=== PATIENT | male | born 1960 | race Caucasian/White ===

== ENCOUNTER 2016-11-07 18:11 | Emergency (ER) | payer MEDICARE, MEDICAID ==
[~2016-11-07] VITALS: Ht 175.3 cm; Wt 72.0 kg
[2016-11-07] MEDS ORDERED: PANT40TA25 PO (18:18)
[2016-11-07] MEDS ORDERED: VALP250 PO (18:18)
[2016-11-07] MEDS ORDERED: LURA80 PO (18:18)
[2016-11-07] MEDS ORDERED: OXYB5 PO (18:18)
[2016-11-07] MEDS ORDERED: MELA3TAB66 PO (18:18)
[2016-11-07] MEDS ORDERED: CLOP75 PO (18:18)
[2016-11-07] MEDS ORDERED: LITH300C3 PO (18:18)
[2016-11-07] MEDS ORDERED: ATOR20TA86 PO (18:18)
[2016-11-07] MEDS ORDERED: GABA-531 PO (18:18)
[2016-11-07] MEDS ORDERED: MELA5TAB3 PO (18:24)
[2016-11-07] MEDS ORDERED: BACITRACIN 0.9 GM PACKET OINTMENT TP ONE ×2 (18:45)
[2016-11-07] MEDS ORDERED: BACITRACIN 28.4 GM OINTMENT TP ONE (19:15)
[2016-11-07 19:33] VITALS: BP 127/74
== END 2016-11-07 20:03 | disposition home or self-care (01) ==
LOC: EMS 18:16
DX: T81.31XA Disruption of external operation (surgical) wound, not elsewhere classified, initial encounter (principal); F17.210 Nicotine dependence, cigarettes, uncomplicated; E78.00 Pure hypercholesterolemia, unspecified
CPT/HCPCS: 99283; 99406

== ENCOUNTER 2017-01-11 09:27 | Emergency (ER) | payer MEDICARE, MEDICAID ==
[~2017-01-11] VITALS: Ht 172.7 cm; Wt 68.1 kg
[~2017-01-11 09:27] MED LIST: ATOR20TA86 PO; CLOP75 PO; GABA-531 PO; LITH300C3 PO; LURA80 PO; MELA5TAB3 PO; OXYB5 PO; PANT40TA25 PO; VALP250 PO
[2017-01-11 09:50] VITALS: BP 137/91
[2017-01-11] MEDS ORDERED: FLUORESCEIN SODIUM 1 MG STRIP OU ONE (10:30)
== END 2017-01-11 11:28 | disposition home or self-care (01) ==
LOC: EMS 09:28
DX: S81.032A Puncture wound without foreign body, left knee, initial encounter (principal); I83.12 Varicose veins of left lower extremity with inflammation; I83.11 Varicose veins of right lower extremity with inflammation; F17.210 Nicotine dependence, cigarettes, uncomplicated; E78.00 Pure hypercholesterolemia, unspecified; X58.XXXA Exposure to other specified factors, initial encounter; Y93.89 Activity, other specified; Y92.89 Other specified places as the place of occurrence of the external cause; Y99.8 Other external cause status
CPT/HCPCS: 99283; 99406

== ENCOUNTER 2018-11-12 14:43 | Inpatient (IN) | payer MEDICARE, MEDICAID ==
[~2018-11-12] VITALS: Ht 172.7 cm; Wt 63.5 kg
[~2018-11-12 14:43] MED LIST changes: -CLOP75 PO; +CLOP75TA3 PO
[2018-11-12] MEDS ORDERED: DIPH12.55 PO (14:53)
[2018-11-12] MEDS ORDERED: HYD50 PO (14:53)
[2018-11-12] MEDS ORDERED: METO25 PO (14:53)
[2018-11-12] MEDS ORDERED: LEVO75 PO (14:53)
[2018-11-12] MEDS ORDERED: ICOS0.5C PO (14:53)
[2018-11-12] MEDS ORDERED: VITAD400 PO (14:53)
[2018-11-12] MEDS ORDERED: LISI-662 PO (14:53)
[2018-11-12] MEDS ORDERED: HYDROCORTISONE 1% 30 GM OINTMENT TP ONE (15:15)
[2018-11-12 15:38] LABS: BASOPHILS % (AUTO) 0.7 % (0.0-2.0); EOSINOPHILS % (AUTO) 1.1 % (1.0-6.0); HEMATOCRIT 44.5 % (41-53); HEMOGLOBIN 14.8 g/dL (13.5-17.5); LYMPHOCYTES # (AUTO) 2.8 K/uL (1.0-4.8); LYMPHOCYTES % (AUTO) 28.5 % (22.0-44.0); MEAN CORPUSCULAR HEMOGLOBIN 28.4 pg (26.0-34.0); MEAN CORPUSCULAR HGB CONC 33.2 G/dL (31.0-37.0); MEAN CORPUSCULAR VOLUME 86 fL (80-100); MONOCYTES # (AUTO) 0.7 K/uL (0.1-1.0); MONOCYTES % (AUTO) 7.5 % (2.0-9.0); NEUTROPHILS % (AUTO) 62.2 % (40.0-70.0); PLATELET COUNT (AUTO) 358 K/uL (150-450); RED BLOOD CELL COUNT(AUTO) 5.19 MIL/uL (4.50-5.90); RED CELL DISTRIBUTION WIDTH 16.5 % (11.5-14.5)
[2018-11-12 16:07] LABS: ALANINE AMINOTRANSFERASE 22 U/L (12-78); ALKALINE PHOSPHATASE 66 U/L (46-116); ANION GAP 11 mmol/L (8-16); ASPARTATE AMINOTRANSFERASE 21 U/L (15-37); BILIRUBIN,TOTAL 0.4 mg/dL (0.1-1.0); CALCIUM, TOTAL 9.4 mg/dL (8.8-10.5); CARBON DIOXIDE 26 mmol/L (22-29); CHLORIDE 100 mmol/L (98-107); GLUCOSE,RANDOM 101 mg/dL (70-110); POTASSIUM 4.9 mmol/L (3.5-5.1); SODIUM SERUM 137 mmol/L (136-145); THYROID STIMULATING HORMONE 5.16 uIU/mL (0.36-3.74); TOTAL PROTEIN, SERUM 8.4 g/dL (6.4-8.2)
[2018-11-12 16:19] LABS: ALBUMIN 3.7 g/dL (3.4-5.0); CREATININE 1.49 mg/dL (0.60-1.30); GLOMERULAR FILTR. RATE CALC 49 mL/min (>60)
[2018-11-12 16:21] LABS: UREA NITROGEN, BLOOD 18 mg/dL (7-18)
[2018-11-12 18:39] VITALS: BP 133/68
[2018-11-12 18:52] VITALS: BP 133/68
[2018-11-12] MEDS ORDERED: INFLUENZA VIRUS VACCINE QVS 2019-20 (3YR+)/PF 60 MCG/0.5 ML SYRINGE IM ONE (19:00)
[2018-11-12] MEDS ORDERED: ATORVASTATIN CALCIUM 20 MG TABLET PO SCH (21:00)
[2018-11-12] MEDS: ZOLPIDEM TARTRATE 10 MG TABLET PO PRN (21:16)
[2018-11-13] MEDS ORDERED: NICOTINE 14 MG/24 HOUR PATCH TD PRN
[2018-11-13 06:00] VITALS: BP 147/83
[2018-11-13 06:16] LABS: CHOL/HDL RATIO 6.1 (4.2-7.3)
[2018-11-13] MEDS ORDERED: LEVOTHYROXINE SODIUM 75 MCG TABLET PO SCH (07:00)
[2018-11-13 08:00] VITALS: BP 116/72
[2018-11-13] MEDS ORDERED: OXYBUTYNIN CHLORIDE 5 MG TABLET PO SCH (09:00)
[2018-11-13] MEDS ORDERED: METOPROLOL TARTRATE 25 MG TABLET PO SCH (09:00)
[2018-11-13] MEDS ORDERED: PANTOPRAZOLE SODIUM 40 MG DR TABLET PO SCH (09:00)
[2018-11-13] MEDS ORDERED: CLOPIDOGREL BISULFATE 75 MG TABLET PO SCH (09:00)
[2018-11-13] MEDS ORDERED: LISINOPRIL 20 MG TABLET PO SCH (09:00)
[2018-11-13] MEDS ORDERED: CHOLECALCIFEROL (VIT D3) 400 UNITS TABLET PO SCH (09:00)
[2018-11-13] MEDS ORDERED: ICOSAPENT ETHYL 1 GM PO SCH (09:00)
[2018-11-13] MEDS ORDERED: ICOS1CAP PO (10:59)
[2018-11-13] MEDS ORDERED: BENZTROPINE MESYLATE 1 MG TABLET PO ONE (14:15)
[2018-11-13] MEDS ORDERED: OLANZapine 5 MG TABLET PO ONE (14:15)
[2018-11-13] MEDS ORDERED: ALBUTEROL SULFATE HFA 90 MCG/PUFF 8 GM INHALER IH PRN ×2 (16:15)
[2018-11-13] MEDS ORDERED: PETROLATUM,WHITE 28 GM JELLY TP PRN ×2 (16:15)
[2018-11-13] MEDS ORDERED: DOCUSATE SODIUM 100 MG CAPSULE PO PRN ×2 (16:15)
[2018-11-13] MEDS ORDERED: ONDANSETRON HCL 4 MG TABLET PO PRN ×2 (16:15)
[2018-11-13] MEDS ORDERED: MAGNESIUM HYDROXIDE SUSPENSION 30 ML UDCUP PO PRN ×2 (16:15)
[2018-11-13] MEDS ORDERED: LOPERAMIDE HCL 2 MG CAPSULE PO PRN ×2 (16:15)
[2018-11-13] MEDS ORDERED: CloNIDine HCL 0.1 MG TABLET PO PRN ×2 (16:15)
[2018-11-13] MEDS ORDERED: GuaiFENesin/D-METHORPHAN [SUGAR-FREE] 200-20MG/10 ML SYRUP UDCUP PO PRN ×2 (16:15)
[2018-11-13] MEDS ORDERED: MAG HYDROX/AL HYDROX/SIMETH ES 30 ML SUSPENSION UDCUP PO PRN ×2 (16:15)
[2018-11-13] MEDS ORDERED: ACETAMINOPHEN 325 MG TABLET PO PRN ×2 (16:15)
[2018-11-13] MEDS ORDERED: IBUPROFEN 400 MG TABLET PO PRN ×2 (16:15)
[2018-11-13] MEDS: LORazepam 2 MG TABLET PO PRN (16:20)
[2018-11-13] MEDS: METOPROLOL TARTRATE 25 MG TABLET PO SCH (16:20)
[2018-11-13 17:39] VITALS: BP 152/92
[2018-11-13] MEDS: ATORVASTATIN CALCIUM 20 MG TABLET PO SCH (20:27)
[2018-11-13] MEDS: OLANZapine 10 MG TABLET PO SCH (20:27)
[2018-11-13] MEDS: ZOLPIDEM TARTRATE 10 MG TABLET PO PRN (20:27)
[2018-11-13] MEDS: BENZTROPINE MESYLATE 1 MG TABLET PO SCH (20:28)
[2018-11-14 02:05] VITALS: BP 126/69
[2018-11-14] MEDS: LORazepam 2 MG TABLET PO PRN ×3 (02:08→16:09)
[2018-11-14] MEDS: BACITRACIN 28.4 GM OINTMENT TP PRN (02:08)
[2018-11-14] MEDS: NICOTINE 14 MG/24 HOUR PATCH TD PRN (06:00)
[2018-11-14] MEDS: HALOPERIDOL 5 MG TABLET PO PRN ×2 (06:54→16:09)
[2018-11-14] MEDS: PANTOPRAZOLE SODIUM 40 MG DR TABLET PO SCH (08:47)
[2018-11-14] MEDS: CHOLECALCIFEROL (VIT D3) 400 UNITS TABLET PO SCH (08:47)
[2018-11-14] MEDS: OXYBUTYNIN CHLORIDE 5 MG TABLET PO SCH (08:47)
[2018-11-14] MEDS: METOPROLOL TARTRATE 25 MG TABLET PO SCH ×2 (08:47→16:09)
[2018-11-14] MEDS: CLOPIDOGREL BISULFATE 75 MG TABLET PO SCH (08:47)
[2018-11-14] MEDS: LISINOPRIL 20 MG TABLET PO SCH (08:47)
[2018-11-14] MEDS: LEVOTHYROXINE SODIUM 75 MCG TABLET PO SCH (08:48)
[2018-11-14] MEDS: MULTIVITAMINS WITH MINERALS, THERAPEUTIC TABLET PO SCH (08:48)
[2018-11-14 10:29] VITALS: BP 149/62
[2018-11-14 16:39] VITALS: BP 137/92
[2018-11-14] MEDS: OLANZapine 10 MG TABLET PO SCH (20:20)
[2018-11-14] MEDS: BENZTROPINE MESYLATE 1 MG TABLET PO SCH (20:21)
[2018-11-14] MEDS: ATORVASTATIN CALCIUM 20 MG TABLET PO SCH (20:21)
[2018-11-15] MEDS: LEVOTHYROXINE SODIUM 75 MCG TABLET PO SCH (07:07)
[2018-11-15] MEDS: LORazepam 2 MG TABLET PO PRN ×2 (08:06→16:53)
[2018-11-15] MEDS: HALOPERIDOL 5 MG TABLET PO PRN ×2 (08:07→12:33)
[2018-11-15] MEDS: OXYBUTYNIN CHLORIDE 5 MG TABLET PO SCH (08:07)
[2018-11-15] MEDS: PANTOPRAZOLE SODIUM 40 MG DR TABLET PO SCH (08:07)
[2018-11-15] MEDS: MULTIVITAMINS WITH MINERALS, THERAPEUTIC TABLET PO SCH (08:07)
[2018-11-15] MEDS: CLOPIDOGREL BISULFATE 75 MG TABLET PO SCH (08:07)
[2018-11-15] MEDS: LISINOPRIL 20 MG TABLET PO SCH (08:07)
[2018-11-15] MEDS: CHOLECALCIFEROL (VIT D3) 400 UNITS TABLET PO SCH (08:07)
[2018-11-15] MEDS: METOPROLOL TARTRATE 25 MG TABLET PO SCH ×2 (08:08→16:53)
[2018-11-15 09:46] VITALS: BP 130/61
[2018-11-15] MEDS: NICOTINE 14 MG/24 HOUR PATCH TD PRN (12:55)
[2018-11-15 16:00] VITALS: BP 104/55
[2018-11-15] MEDS: BACITRACIN 28.4 GM OINTMENT TP PRN (16:53)
[2018-11-15] MEDS: BENZTROPINE MESYLATE 1 MG TABLET PO SCH (20:44)
[2018-11-15] MEDS: ATORVASTATIN CALCIUM 20 MG TABLET PO SCH (20:44)
[2018-11-15] MEDS: OLANZapine 10 MG TABLET PO SCH (20:44)
[2018-11-16] MEDS: LEVOTHYROXINE SODIUM 75 MCG TABLET PO SCH (06:47)
[2018-11-16] MEDS: CLOPIDOGREL BISULFATE 75 MG TABLET PO SCH (08:34)
[2018-11-16] MEDS: PANTOPRAZOLE SODIUM 40 MG DR TABLET PO SCH (08:35)
[2018-11-16] MEDS: METOPROLOL TARTRATE 25 MG TABLET PO SCH ×2 (08:35→16:11)
[2018-11-16] MEDS: MULTIVITAMINS WITH MINERALS, THERAPEUTIC TABLET PO SCH (08:35)
[2018-11-16] MEDS: LISINOPRIL 20 MG TABLET PO SCH (08:35)
[2018-11-16] MEDS: CHOLECALCIFEROL (VIT D3) 400 UNITS TABLET PO SCH (08:35)
[2018-11-16] MEDS: OXYBUTYNIN CHLORIDE 5 MG TABLET PO SCH (08:35)
[2018-11-16 09:31] VITALS: BP 118/67
[2018-11-16] MEDS: LORazepam 2 MG TABLET PO PRN (10:34)
[2018-11-16] MEDS: BACITRACIN 28.4 GM OINTMENT TP PRN (10:38)
[2018-11-16] MEDS: NICOTINE 14 MG/24 HOUR PATCH TD PRN (12:56)
[2018-11-16 16:05] VITALS: BP 127/80
[2018-11-16] MEDS: OLANZapine 10 MG TABLET PO SCH (20:06)
[2018-11-16] MEDS: ATORVASTATIN CALCIUM 20 MG TABLET PO SCH (20:06)
[2018-11-16] MEDS: BENZTROPINE MESYLATE 1 MG TABLET PO SCH (20:06)
[2018-11-16] MEDS: ZOLPIDEM TARTRATE 10 MG TABLET PO PRN (20:06)
[2018-11-16 22:52] VITALS: BP 136/82
[2018-11-17] MEDS: LEVOTHYROXINE SODIUM 75 MCG TABLET PO SCH (06:42)
[2018-11-17] MEDS: CLOPIDOGREL BISULFATE 75 MG TABLET PO SCH (08:49)
[2018-11-17] MEDS: CHOLECALCIFEROL (VIT D3) 400 UNITS TABLET PO SCH (08:49)
[2018-11-17] MEDS: PANTOPRAZOLE SODIUM 40 MG DR TABLET PO SCH (08:49)
[2018-11-17] MEDS: METOPROLOL TARTRATE 25 MG TABLET PO SCH ×2 (08:49→17:13)
[2018-11-17] MEDS: LISINOPRIL 20 MG TABLET PO SCH (08:49)
[2018-11-17] MEDS: MULTIVITAMINS WITH MINERALS, THERAPEUTIC TABLET PO SCH (08:49)
[2018-11-17] MEDS: OXYBUTYNIN CHLORIDE 5 MG TABLET PO SCH (08:49)
[2018-11-17] MEDS: LORazepam 1 MG TABLET PO PRN ×2 (10:01→14:03)
[2018-11-17] MEDS: HALOPERIDOL 5 MG TABLET PO PRN (10:01)
[2018-11-17 10:07] VITALS: BP 110/66
[2018-11-17] MEDS: NICOTINE 14 MG/24 HOUR PATCH TD PRN (12:56)
[2018-11-17 20:09] VITALS: BP 118/69
[2018-11-17] MEDS: BENZTROPINE MESYLATE 1 MG TABLET PO SCH (21:55)
[2018-11-17] MEDS: OLANZapine 10 MG TABLET PO SCH (21:55)
[2018-11-17] MEDS: ATORVASTATIN CALCIUM 20 MG TABLET PO SCH (21:55)
[2018-11-17] MEDS: ZOLPIDEM TARTRATE 10 MG TABLET PO PRN (21:59)
[2018-11-18] MEDS ORDERED: LEVOTHYROXINE SODIUM 100 MCG TABLET PO SCH (07:00)
[2018-11-18] MEDS: CHOLECALCIFEROL (VIT D3) 400 UNITS TABLET PO SCH (09:22)
[2018-11-18] MEDS: METOPROLOL TARTRATE 25 MG TABLET PO SCH (09:22)
[2018-11-18] MEDS: OXYBUTYNIN CHLORIDE 5 MG TABLET PO SCH (09:22)
[2018-11-18] MEDS: CLOPIDOGREL BISULFATE 75 MG TABLET PO SCH (09:22)
[2018-11-18] MEDS: LISINOPRIL 20 MG TABLET PO SCH (09:24)
[2018-11-18] MEDS: MULTIVITAMINS WITH MINERALS, THERAPEUTIC TABLET PO SCH (09:24)
[2018-11-18] MEDS: PANTOPRAZOLE SODIUM 40 MG DR TABLET PO SCH (09:24)
[2018-11-18] MEDS ORDERED: OLAN10TA20 PO (09:28)
[2018-11-18] MEDS ORDERED: BENZ1TAB10 PO ×2 (09:28→10:10)
[2018-11-18] MEDS: LORazepam 1 MG TABLET PO PRN (09:29)
[2018-11-18] MEDS: HALOPERIDOL 5 MG TABLET PO PRN (09:29)
[2018-11-18] MEDS ORDERED: OLAN10TA3 PO (10:11)
[2018-11-18] MEDS ORDERED: MULT-1239 PO (10:14)
[2018-11-18] MEDS ORDERED: LEVO50TA11 PO (10:14)
== END 2018-11-18 13:00 | disposition home or self-care (01) | DRG 885 ==
LOC: EMS 14:44 → 3EX 17:25
DX: F25.0 Schizoaffective disorder, bipolar type (principal); R45.851 Suicidal ideations; E03.9 Hypothyroidism, unspecified; E56.9 Vitamin deficiency, unspecified; E78.00 Pure hypercholesterolemia, unspecified; E78.5 Hyperlipidemia, unspecified; F17.210 Nicotine dependence, cigarettes, uncomplicated; G89.29 Other chronic pain; I10 Essential (primary) hypertension; I25.10 Atherosclerotic heart disease of native coronary artery without angina pectoris; K21.9 Gastro-esophageal reflux disease without esophagitis; R32 Unspecified urinary incontinence; M54.2 Cervicalgia; M54.9 Dorsalgia, unspecified; R94.6 Abnormal results of thyroid function studies; Z79.02 Long term (current) use of antithrombotics/antiplatelets; Z79.899 Other long term (current) drug therapy; Z71.6 Tobacco abuse counseling
CPT/HCPCS: 83036; 84443; G0378; G0480

== ENCOUNTER 2019-01-02 14:37 | Emergency (ER) | payer MEDICARE, MEDICAID ==
[~2019-01-02] VITALS: Ht 170.2 cm; Wt 59.1 kg
[~2019-01-02 14:37] MED LIST changes: +BENZ1TAB10 PO; -GABA-531 PO; +LEVO50TA11 PO; +LISI-662 PO; -LITH300C3 PO; -LURA80 PO; -MELA5TAB3 PO; +METO25 PO; +MULT-1239 PO; +OLAN10TA20 PO; +OLAN10TA3 PO; -VALP250 PO; +VITAD400 PO
[2019-01-02 17:21] LABS: BASOPHILS % (AUTO) 0.6 % (0.0-2.0); EOSINOPHILS % (AUTO) 1.4 % (1.0-6.0); HEMATOCRIT 42.5 % (41-53); HEMOGLOBIN 14.2 g/dL (13.5-17.5); LYMPHOCYTES # (AUTO) 1.9 K/uL (1.0-4.8); LYMPHOCYTES % (AUTO) 16.7 % (22.0-44.0); MEAN CORPUSCULAR HEMOGLOBIN 29.4 pg (26.0-34.0); MEAN CORPUSCULAR HGB CONC 33.5 G/dL (31.0-37.0); MEAN CORPUSCULAR VOLUME 88 fL (80-100); MONOCYTES # (AUTO) 0.8 K/uL (0.1-1.0); MONOCYTES % (AUTO) 6.9 % (2.0-9.0); NEUTROPHILS # (AUTO) 8.2 K/uL (1.8-7.7); NEUTROPHILS % (AUTO) 74.4 % (40.0-70.0); PLATELET COUNT (AUTO) 244 K/uL (150-450); RED BLOOD CELL COUNT(AUTO) 4.84 MIL/uL (4.50-5.90); RED CELL DISTRIBUTION WIDTH 14.3 % (11.5-14.5)
[2019-01-02 17:36] LABS: ANION GAP 7 mmol/L (8-16); CALCIUM, TOTAL 9.2 mg/dL (8.8-10.5); CARBON DIOXIDE 28 mmol/L (22-29); CHLORIDE 101 mmol/L (98-107); GLOMERULAR FILTR. RATE CALC > 60 mL/min (>60); GLUCOSE,RANDOM 84 mg/dL (70-110); POTASSIUM 4.1 mmol/L (3.5-5.1); SODIUM SERUM 136 mmol/L (136-145); UREA NITROGEN, BLOOD 16 mg/dL (7-18)
[2019-01-02 17:42] LABS: ALANINE AMINOTRANSFERASE 29 U/L (12-78); ALBUMIN 4.1 g/dL (3.4-5.0); ALKALINE PHOSPHATASE 86 U/L (46-116); ASPARTATE AMINOTRANSFERASE 24 U/L (15-37); BILIRUBIN,TOTAL 0.4 mg/dL (0.1-1.0); TOTAL PROTEIN, SERUM 8.5 g/dL (6.4-8.2)
[2019-01-02 17:46] LABS: LACTIC ACID 0.3 mmol/L (0.4-2.0)
[2019-01-02 18:23] VITALS: BP 138/79
[2019-01-02] MEDS ORDERED: DOXYCYCLINE HYCLATE 100 MG CAPSULE PO ONE (18:30)
== END 2019-01-02 18:50 | disposition home or self-care (01) ==
LOC: EMS 14:38
DX: L03.115 Cellulitis of right lower limb (principal); E78.00 Pure hypercholesterolemia, unspecified; F20.9 Schizophrenia, unspecified; F17.210 Nicotine dependence, cigarettes, uncomplicated; Z79.899 Other long term (current) drug therapy
CPT/HCPCS: 83605; 93971

== ENCOUNTER 2019-03-15 10:11 | Inpatient (IN) | payer MEDICARE, MEDICAID ==
[~2019-03-15] VITALS: Ht 167.6 cm; Wt 62.1 kg
[~2019-03-15 10:11] MED LIST changes: -MULT-1239 PO; -OLAN10TA20 PO; -PANT40TA25 PO; -VITAD400 PO
[2019-03-15 12:51] VITALS: BP 122/75
[2019-03-15] MEDS ORDERED: INFLUENZA VIRUS VACCINE QVS 2019-20 (3YR+)/PF 60 MCG/0.5 ML SYRINGE IM ONE (13:30)
[2019-03-15] MEDS ORDERED: LORazepam 2 MG TABLET PO PRN (13:45)
[2019-03-15] MEDS ORDERED: ZOLPIDEM TARTRATE 10 MG TABLET PO PRN (13:45)
[2019-03-15] MEDS ORDERED: FluPHENAZine HCL 5 MG TABLET PO PRN (13:45)
[2019-03-15] MEDS ORDERED: BENZTROPINE MESYLATE 1 MG TABLET PO SCH (14:03)
[2019-03-15] MEDS ORDERED: PNEUMOCOCCAL VACCINE POLYVALENT 0.5 ML VIAL [PPSV23] IM ONE (14:30)
[2019-03-15] MEDS ORDERED: TUBERCULIN, PURIFIED PROTEIN DERIVATIVE 5 TU/0.1 ML SYRINGE ID ONE (15:30)
[2019-03-15] MEDS ORDERED: ACETAMINOPHEN 325 MG TABLET PO PRN (15:30)
[2019-03-15] MEDS ORDERED: MAG HYDROX/AL HYDROX/SIMETH ES 30 ML SUSPENSION UDCUP PO PRN (15:30)
[2019-03-15] MEDS ORDERED: HydrOXYzine PAMOATE 50 MG CAPSULE PO PRN (15:30)
[2019-03-15] MEDS ORDERED: LOPERAMIDE HCL 2 MG CAPSULE PO PRN (15:30)
[2019-03-15] MEDS ORDERED: GuaiFENesin/D-METHORPHAN [SUGAR-FREE] 200-20MG/10 ML SYRUP UDCUP PO PRN (15:30)
[2019-03-15] MEDS ORDERED: PROMETHAZINE HCL 25 MG TABLET PO PRN (15:30)
[2019-03-15] MEDS ORDERED: MAGNESIUM HYDROXIDE SUSPENSION 30 ML UDCUP PO PRN (15:30)
[2019-03-15] MEDS ORDERED: PROPRANOLOL HCL 20 MG TABLET PO SCH (16:00)
[2019-03-15 16:11] VITALS: BP 120/80
[2019-03-15] MEDS: NICOTINE 21 MG/24 HOUR PATCH TD SCH (16:16)
[2019-03-15] MEDS: METOPROLOL TARTRATE 25 MG TABLET PO SCH (16:36)
[2019-03-15] MEDS: PREGABALIN 25 MG CAPSULE PO SCH (16:36)
[2019-03-15] MEDS: THIAMINE HCL 100 MG TABLET PO SCH (16:36)
[2019-03-15] MEDS: CloNIDine HCL 0.1 MG TABLET PO SCH ×2 (16:36→21:13)
[2019-03-15] MEDS: GABAPENTIN 300 MG CAPSULE PO SCH ×2 (16:36→21:13)
[2019-03-15] MEDS: RisperiDONE 0.5 MG TABLET PO SCH ×2 (16:42→21:13)
[2019-03-15] MEDS ORDERED: FluPHENAZine HCL 10 MG TABLET PO SCH (21:00)
[2019-03-15 21:12] VITALS: BP 121/70
[2019-03-15] MEDS: LURASIDONE HCL 40 MG TABLET PO SCH (21:13)
[2019-03-16 00:29] VITALS: BP 131/71
[2019-03-16] MEDS: NICOTINE 21 MG/24 HOUR PATCH TD SCH (08:20)
[2019-03-16] MEDS: THIAMINE HCL 100 MG TABLET PO SCH ×2 (08:20→16:53)
[2019-03-16] MEDS: CLOPIDOGREL BISULFATE 75 MG TABLET PO SCH (08:21)
[2019-03-16] MEDS: GABAPENTIN 300 MG CAPSULE PO SCH ×2 (08:21→12:05)
[2019-03-16] MEDS: METOPROLOL TARTRATE 25 MG TABLET PO SCH ×2 (08:21→16:54)
[2019-03-16] MEDS: FOLIC ACID 1 MG TABLET PO SCH (08:21)
[2019-03-16] MEDS: CloNIDine HCL 0.1 MG TABLET PO SCH ×4 (08:21→20:52)
[2019-03-16] MEDS: RisperiDONE 0.5 MG TABLET PO SCH ×4 (08:21→20:56)
[2019-03-16] MEDS: LISINOPRIL 20 MG TABLET PO SCH (08:21)
[2019-03-16] MEDS: PREGABALIN 25 MG CAPSULE PO SCH ×3 (08:21→16:53)
[2019-03-16] MEDS: MULTIVITAMINS WITH MINERALS, THERAPEUTIC TABLET PO SCH (08:21)
[2019-03-16 08:36] VITALS: BP 129/71
[2019-03-16 08:49] LABS: BASOPHILS % (AUTO) 0.5 % (0.0-2.0); EOSINOPHILS % (AUTO) 1.2 % (1.0-6.0); HEMATOCRIT 44.9 % (41-53); LYMPHOCYTES # (AUTO) 1.4 K/uL (1.0-4.8); LYMPHOCYTES % (AUTO) 13.8 % (22.0-44.0); MEAN CORPUSCULAR HEMOGLOBIN 28.5 pg (26.0-34.0); MEAN CORPUSCULAR HGB CONC 33.5 G/dL (31.0-37.0); MEAN CORPUSCULAR VOLUME 85 fL (80-100); MONOCYTES # (AUTO) 0.7 K/uL (0.1-1.0); MONOCYTES % (AUTO) 7.5 % (2.0-9.0); NEUTROPHILS # (AUTO) 7.6 K/uL (1.8-7.7); PLATELET COUNT (AUTO) 231 K/uL (150-450); RED BLOOD CELL COUNT(AUTO) 5.28 MIL/uL (4.50-5.90); RED CELL DISTRIBUTION WIDTH 13.2 % (11.5-14.5)
[2019-03-16 09:11] LABS: HEMOGLOBIN A1C 6.1 % (4.5-6.2)
[2019-03-16 09:28] LABS: ALANINE AMINOTRANSFERASE 41 U/L (12-78); ALBUMIN 3.9 g/dL (3.4-5.0); ALKALINE PHOSPHATASE 82 U/L (46-116); ANION GAP 7 mmol/L (8-16); ASPARTATE AMINOTRANSFERASE 20 U/L (15-37); BILIRUBIN,TOTAL 0.4 mg/dL (0.1-1.0); CALCIUM, TOTAL 8.9 mg/dL (8.8-10.5); CARBON DIOXIDE 29 mmol/L (22-29); CHLORIDE 101 mmol/L (98-107); CHOL/HDL RATIO 5.2 (4.2-7.3); CHOLESTEROL 194 mg/dL (131-200); CREATININE 0.77 mg/dL (0.60-1.30); GLOMERULAR FILTR. RATE CALC > 60 mL/min (>60); GLUCOSE,RANDOM 95 mg/dL (70-110); HDL CHOLESTEROL 37 mg/dL (40-60); LDL CHOL (CALC.) 147 mg/dL (0-130); POTASSIUM 3.7 mmol/L (3.5-5.1); SODIUM SERUM 137 mmol/L (136-145); THYROID STIMULATING HORMONE 2.31 uIU/mL (0.36-3.74); TOTAL PROTEIN, SERUM 7.6 g/dL (6.4-8.2); TRIGLYCERIDES 50 mg/dL (15-150); UREA NITROGEN, BLOOD 12 mg/dL (7-18)
[2019-03-16] MEDS ORDERED: LEVO100 PO (15:57)
[2019-03-16 16:14] VITALS: BP 130/72
[2019-03-16] MEDS: GABAPENTIN 400 MG CAPSULE PO SCH ×2 (16:54→20:52)
[2019-03-16] MEDS: LURASIDONE HCL 40 MG TABLET PO SCH (17:01)
[2019-03-16] MEDS: BENZTROPINE MESYLATE 0.5 MG TABLET PO SCH (17:02)
[2019-03-16 20:36] VITALS: BP 112/64
[2019-03-17 01:36] VITALS: BP 108/55
[2019-03-17 08:35] VITALS: BP 115/66
[2019-03-17] MEDS: FOLIC ACID 1 MG TABLET PO SCH (08:40)
[2019-03-17] MEDS: THIAMINE HCL 100 MG TABLET PO SCH ×2 (08:40→16:28)
[2019-03-17] MEDS: CLOPIDOGREL BISULFATE 75 MG TABLET PO SCH (08:40)
[2019-03-17] MEDS: GABAPENTIN 400 MG CAPSULE PO SCH ×4 (08:40→20:17)
[2019-03-17] MEDS: PREGABALIN 25 MG CAPSULE PO SCH ×3 (08:40→16:27)
[2019-03-17] MEDS: RisperiDONE 0.5 MG TABLET PO SCH ×2 (08:41→16:28)
[2019-03-17] MEDS: BENZTROPINE MESYLATE 0.5 MG TABLET PO SCH ×3 (08:41→16:28)
[2019-03-17] MEDS: NICOTINE 21 MG/24 HOUR PATCH TD SCH (08:41)
[2019-03-17] MEDS: MULTIVITAMINS WITH MINERALS, THERAPEUTIC TABLET PO SCH (08:41)
[2019-03-17] MEDS: METOPROLOL TARTRATE 25 MG TABLET PO SCH ×2 (08:42→16:28)
[2019-03-17] MEDS: CloNIDine HCL 0.1 MG TABLET PO SCH ×4 (08:44→20:17)
[2019-03-17] MEDS: LISINOPRIL 20 MG TABLET PO SCH (10:17)
[2019-03-17 16:10] VITALS: BP 127/67
[2019-03-18 02:19] VITALS: BP 104/67
[2019-03-18 08:21] VITALS: BP_SYST 101; BP_SYST 98; BP_DIAS 68; BP_DIAS 69
[2019-03-18] MEDS: LISINOPRIL 20 MG TABLET PO SCH (09:00)
[2019-03-18] MEDS: CloNIDine HCL 0.1 MG TABLET PO SCH ×4 (09:00→20:40)
[2019-03-18] MEDS: METOPROLOL TARTRATE 25 MG TABLET PO SCH ×2 (09:00→16:08)
[2019-03-18] MEDS: CLOPIDOGREL BISULFATE 75 MG TABLET PO SCH (09:31)
[2019-03-18] MEDS: GABAPENTIN 400 MG CAPSULE PO SCH ×4 (09:31→20:40)
[2019-03-18] MEDS: FOLIC ACID 1 MG TABLET PO SCH (09:31)
[2019-03-18] MEDS: PREGABALIN 25 MG CAPSULE PO SCH ×3 (09:31→16:08)
[2019-03-18] MEDS: THIAMINE HCL 100 MG TABLET PO SCH ×2 (09:31→16:08)
[2019-03-18] MEDS: MULTIVITAMINS WITH MINERALS, THERAPEUTIC TABLET PO SCH (09:31)
[2019-03-18] MEDS: BENZTROPINE MESYLATE 0.5 MG TABLET PO SCH (09:31)
[2019-03-18] MEDS: RisperiDONE 0.5 MG TABLET PO SCH ×2 (09:31→16:08)
[2019-03-18] MEDS: NICOTINE 21 MG/24 HOUR PATCH TD SCH (09:32)
[2019-03-18] MEDS: BENZTROPINE MESYLATE 1 MG TABLET PO SCH (16:08)
[2019-03-18 16:16] VITALS: BP 132/65
[2019-03-19] VITALS (7 sets, daily range): BP systolic 96–121; BP diastolic 59–72
[2019-03-19] MEDS: CLOPIDOGREL BISULFATE 75 MG TABLET PO SCH (08:18)
[2019-03-19] MEDS: LISINOPRIL 20 MG TABLET PO SCH (08:18)
[2019-03-19] MEDS: METOPROLOL TARTRATE 25 MG TABLET PO SCH ×2 (08:18→17:00)
[2019-03-19] MEDS: GABAPENTIN 400 MG CAPSULE PO SCH ×4 (08:18→20:31)
[2019-03-19] MEDS: MULTIVITAMINS WITH MINERALS, THERAPEUTIC TABLET PO SCH (08:18)
[2019-03-19] MEDS: PREGABALIN 25 MG CAPSULE PO SCH ×2 (08:18→12:31)
[2019-03-19] MEDS: CloNIDine HCL 0.1 MG TABLET PO SCH ×4 (08:18→20:30)
[2019-03-19] MEDS: RisperiDONE 0.5 MG TABLET PO SCH (08:18)
[2019-03-19] MEDS: BENZTROPINE MESYLATE 1 MG TABLET PO SCH (08:18)
[2019-03-19] MEDS: THIAMINE HCL 100 MG TABLET PO SCH ×2 (08:18→16:37)
[2019-03-19] MEDS: NICOTINE 21 MG/24 HOUR PATCH TD SCH (08:19)
[2019-03-19] MEDS: FOLIC ACID 1 MG TABLET PO SCH (08:19)
[2019-03-19] MEDS ORDERED: PREGABALIN 50 MG CAPSULE PO SCH (13:00)
[2019-03-19] MEDS: RisperiDONE 2 MG TABLET PO SCH (16:37)
[2019-03-19] MEDS: BENZTROPINE MESYLATE 2 MG TABLET PO SCH (16:37)
[2019-03-19] MEDS: PREGABALIN 50 MG CAPSULE PO SCH (16:38)
[2019-03-20] MEDS: THIAMINE HCL 100 MG TABLET PO SCH ×2 (08:18→16:37)
[2019-03-20] MEDS: RisperiDONE 2 MG TABLET PO SCH (08:18)
[2019-03-20] MEDS: MULTIVITAMINS WITH MINERALS, THERAPEUTIC TABLET PO SCH (08:18)
[2019-03-20] MEDS: LISINOPRIL 20 MG TABLET PO SCH ×2 (08:18→08:57)
[2019-03-20] MEDS: GABAPENTIN 400 MG CAPSULE PO SCH ×4 (08:19→20:35)
[2019-03-20] MEDS: CLOPIDOGREL BISULFATE 75 MG TABLET PO SCH (08:19)
[2019-03-20] MEDS: FOLIC ACID 1 MG TABLET PO SCH (08:19)
[2019-03-20] MEDS: BENZTROPINE MESYLATE 2 MG TABLET PO SCH ×2 (08:19→16:37)
[2019-03-20] MEDS: METOPROLOL TARTRATE 25 MG TABLET PO SCH ×3 (08:19→17:00)
[2019-03-20] MEDS: CloNIDine HCL 0.1 MG TABLET PO SCH ×4 (08:19→20:35)
[2019-03-20] MEDS: PREGABALIN 50 MG CAPSULE PO SCH ×3 (08:20→16:37)
[2019-03-20] MEDS: NICOTINE 21 MG/24 HOUR PATCH TD SCH ×2 (08:20→08:58)
[2019-03-20 08:23] VITALS: BP 134/78
[2019-03-20 16:09] VITALS: BP 108/73
[2019-03-20] MEDS: RisperiDONE 3 MG TABLET PO SCH (16:37)
[2019-03-20] MEDS ORDERED: PREG50 PO (16:45)
[2019-03-20] MEDS ORDERED: CLON0.1T13 PO (16:45)
[2019-03-20] MEDS ORDERED: BENZ2TAB10 PO (16:45)
[2019-03-20] MEDS ORDERED: GABA-533 PO (16:45)
[2019-03-20] MEDS ORDERED: RISP3 PO (16:45)
[2019-03-20 17:33] VITALS: BP 98/64
[2019-03-20 20:33] VITALS: BP 110/73
[2019-03-21 01:15] VITALS: BP 115/72
[2019-03-21 08:31] VITALS: BP 112/60
[2019-03-21] MEDS: THIAMINE HCL 100 MG TABLET PO SCH (08:35)
[2019-03-21] MEDS: GABAPENTIN 400 MG CAPSULE PO SCH ×2 (08:35→11:51)
[2019-03-21] MEDS: METOPROLOL TARTRATE 25 MG TABLET PO SCH (08:36)
[2019-03-21] MEDS: RisperiDONE 3 MG TABLET PO SCH (08:36)
[2019-03-21] MEDS: CLOPIDOGREL BISULFATE 75 MG TABLET PO SCH (08:36)
[2019-03-21] MEDS: FOLIC ACID 1 MG TABLET PO SCH (08:36)
[2019-03-21] MEDS: PREGABALIN 75 MG CAPSULE PO SCH ×2 (08:36→11:51)
[2019-03-21] MEDS: MULTIVITAMINS WITH MINERALS, THERAPEUTIC TABLET PO SCH (08:36)
[2019-03-21] MEDS: BENZTROPINE MESYLATE 2 MG TABLET PO SCH (08:36)
[2019-03-21] MEDS: LISINOPRIL 20 MG TABLET PO SCH (08:36)
[2019-03-21] MEDS: CloNIDine HCL 0.1 MG TABLET PO SCH (08:36)
[2019-03-21] MEDS: NICOTINE 21 MG/24 HOUR PATCH TD SCH (08:37)
== END 2019-03-21 13:25 | disposition home or self-care (01) | DRG 885 ==
LOC: B2X 13:41
PROVIDERS: ADMIT Psychiatry & Neurology Psychiatry; ATTEND Psychiatry & Neurology Psychiatry
PROC: 3E0234Z Introduction of Serum, Toxoid and Vaccine into Muscle, Percutaneous Approach (ICD-10-PCS; principal; 2019-03-15)
PROC: 3E02340 Introduction of Influenza Vaccine into Muscle, Percutaneous Approach (ICD-10-PCS; 2019-03-15)
DX: F25.9 Schizoaffective disorder, unspecified (principal); L03.115 Cellulitis of right lower limb; L03.116 Cellulitis of left lower limb; F17.210 Nicotine dependence, cigarettes, uncomplicated; E03.9 Hypothyroidism, unspecified; E78.5 Hyperlipidemia, unspecified; I10 Essential (primary) hypertension; I25.10 Atherosclerotic heart disease of native coronary artery without angina pectoris; K21.9 Gastro-esophageal reflux disease without esophagitis; E55.9 Vitamin D deficiency, unspecified; F41.9 Anxiety disorder, unspecified; Z91.19 Patient's noncompliance with other medical treatment and regimen; R45.87 Impulsiveness; Z23 Encounter for immunization
CPT/HCPCS: 82728; 83036; 84439; 84443; 86592; 90686; 90732; 93005

== ENCOUNTER 2019-04-06 12:33 | Emergency (ER) | payer MEDICARE, MEDICAID ==
[~2019-04-06] VITALS: Ht 167.6 cm; Wt 63.6 kg
[~2019-04-06 12:33] MED LIST changes: -ATOR20TA86 PO; -BENZ1TAB10 PO; +BENZ2TAB10 PO; +CLON0.1T13 PO; +GABA-533 PO; -LEVO50TA11 PO; -OLAN10TA3 PO; -OXYB5 PO; +PREG50 PO; +RISP3 PO
[2019-04-06] MEDS ORDERED: ATOR20TA86 PO (13:11)
[2019-04-06] MEDS ORDERED: OXYB5XL PO (13:11)
[2019-04-06] MEDS ORDERED: LEVO100 PO (13:11)
[2019-04-06 14:15] LABS: BASOPHILS % (AUTO) 0.6 % (0.0-2.0); EOSINOPHILS % (AUTO) 2.9 % (1.0-6.0); HEMOGLOBIN 13.6 g/dL (13.5-17.5); LYMPHOCYTES # (AUTO) 1.8 K/uL (1.0-4.8); LYMPHOCYTES % (AUTO) 23.4 % (22.0-44.0); MEAN CORPUSCULAR HEMOGLOBIN 28.2 pg (26.0-34.0); MEAN CORPUSCULAR HGB CONC 33.1 G/dL (31.0-37.0); MEAN CORPUSCULAR VOLUME 85 fL (80-100); MONOCYTES # (AUTO) 0.4 K/uL (0.1-1.0); MONOCYTES % (AUTO) 5.2 % (2.0-9.0); NEUTROPHILS # (AUTO) 5.3 K/uL (1.8-7.7); NEUTROPHILS % (AUTO) 67.9 % (40.0-70.0); PLATELET COUNT (AUTO) 210 K/uL (150-450); RED BLOOD CELL COUNT(AUTO) 4.81 MIL/uL (4.50-5.90); RED CELL DISTRIBUTION WIDTH 13.8 % (11.5-14.5)
[2019-04-06 14:20] LABS: ANION GAP 4 mmol/L (8-16); CALCIUM, TOTAL 8.6 mg/dL (8.8-10.5); CARBON DIOXIDE 30 mmol/L (22-29); CHLORIDE 105 mmol/L (98-107); CREATININE 0.67 mg/dL (0.60-1.30); GLOMERULAR FILTR. RATE CALC > 60 mL/min (>60); GLUCOSE,RANDOM 76 mg/dL (70-110); SODIUM SERUM 139 mmol/L (136-145); UREA NITROGEN, BLOOD 11 mg/dL (7-18)
[2019-04-06 14:26] LABS: ALANINE AMINOTRANSFERASE 30 U/L (12-78); ALBUMIN 3.5 g/dL (3.4-5.0); ALKALINE PHOSPHATASE 77 U/L (46-116); ASPARTATE AMINOTRANSFERASE 20 U/L (15-37); BILIRUBIN,TOTAL 0.3 mg/dL (0.1-1.0); TOTAL PROTEIN, SERUM 7.4 g/dL (6.4-8.2)
[2019-04-06 14:28] LABS: LACTIC ACID 0.7 mmol/L (0.4-2.0)
[2019-04-06 14:36] VITALS: BP 121/74
== END 2019-04-06 14:50 | disposition left against medical advice (07) ==
LOC: EMS 12:36
DX: I83.019 Varicose veins of right lower extremity with ulcer of unspecified site (principal); L97.919 Non-pressure chronic ulcer of unspecified part of right lower leg with unspecified severity; L03.115 Cellulitis of right lower limb; E78.00 Pure hypercholesterolemia, unspecified; F20.9 Schizophrenia, unspecified; F17.210 Nicotine dependence, cigarettes, uncomplicated; Z79.899 Other long term (current) drug therapy
CPT/HCPCS: 83605